=== PATIENT | female | born 1980 | race Caucasian/White ===

== ENCOUNTER 2018-07-24 14:54 | Inpatient (IN) | payer MEDICAID ==
[~2018-07-24] VITALS: Ht 160 cm; Wt 82.6 kg
[2018-07-24 17:44] VITALS: BP 118/77; PULSE 83; RESP 20; Ht 160 cm; Wt 82.6 kg
[2018-07-24] MEDS ORDERED: PREN-93 PO (17:53)
[2018-07-24] MEDS ORDERED: CARBOPROST 250 MCG INJ IM PRN ×2 (18:00→21:30)
[2018-07-24] MEDS ORDERED: LIDOCAINE 1% (MPF) 30 ML INJ INJ PRN (18:00)
[2018-07-24] MEDS ORDERED: BUTORPHANOL 2 MG INJ IV PRN (18:00)
[2018-07-24] MEDS ORDERED: OXYTOCIN 30 UNITS/LR 500 ML IV SCH ×2 (18:00)
[2018-07-24] MEDS ORDERED: OXYTOCIN 30 UNITS/LR 500 ML IV PRN ×2 (18:00→21:30)
[2018-07-24] MEDS ORDERED: IBUPROFEN 600 MG TAB PO PRN (18:00)
[2018-07-24] MEDS ORDERED: METHYLERGONOVINE 0.2 MG INJ IM PRN ×2 (18:00→21:30)
[2018-07-24] MEDS ORDERED: MISOPROSTOL 200 MCG TAB PR PRN ×2 (18:00→21:30)
[2018-07-24] MEDS: LACTATED RINGER'S 1,000 ML IV SCH (19:29)
--- NOTE | 2018-07-24 20:30 | HP ---
Date/Time of Note Date/Time of Note DATE: 07/24/18 TIME: 20:28 OB - History Hx of Present Chief Complaint: contractions Estimated Due Date: July 26, 2018 : 3 Para: 2 Spontaneous : 0 Therapeutic : 0 Care: Good Care Ultrasounds: Normal mid trimester US Obstetrical Complications: None Medical Complications: None Past Family/Social History * Past Medical, Surgical, Family and Obstetric Histories reviewed from chart. GBS Status: Negative OB Admission Exam Vital Signs Vital Signs Vital Signs Date Temp Pulse Resp B/P (MAP) Pulse Ox O2 O2 Flow FiO2 Time Delivery Rate 07/24/18 98.7 83 20 118/77 Room Air 17:44 (91) Physical Exam HEENT: WNL Heart: Rhythm Normal Lungs: Clear, Equal Abdomen: WNL Extremities: Normal Reflexes: Normal Cervical Dilatation: 4cm Effacement: 50% Station: -1 Membranes: Intact Heart Rate: 120's Accelerations: Accelerations Present Decelerations: No Decelerations Varibility: Moderate Last 72 hours Lab Results CBC & BMP 07/24/18 18:00 OB Assessment/Plan Reason for admission: active labor Plan: Expectant Management CARLOS RODRÍGUEZ MD July 24, 2018 20:30
--- NOTE | 2018-07-24 21:22 | LDN ---
Date/Time of Note Date/Time of Note DATE: 07/24/18 TIME: 21:18 Delivery Summary Patient was delivered by Dr Fields while I was on my way. over intact perineum. Shoulder dystocia noted and managed by Mc Henri maneuver and suprapubic pressure. Placenta Delivered: Spontaneously Meconium: Thick Episiotomy: No Laceration repair: Second degree perineal and vaginal laceration repaired. Anesthesia type: Local Estimated blood loss: 300 Sponge & Needle done & correct: Yes All needle counts correct: Yes Any foreign bodies felt in the: No Delivery Information Sex Infant Sex: male Apgars 1 Minute: 7 5 Minute: 9 Umbilical Cord Umbilical cord with: 3 Vessels Cord presentations: nuchal cord Nuchal cord present X: 1 Cord Blood was obtained: Yes Mother & Baby Disposition Disposition Mom & Baby to Maternity; Good: Yes CARLOS RODRÍGUEZ MD July 24, 2018 21:22
[2018-07-24] MEDS: LACTATED RINGER'S 1,000 ML IV* SCH (21:23)
[2018-07-24] MEDS ORDERED: DIBUCAINE 1% 30 GM OINT TOP PRN (21:30)
[2018-07-24] MEDS ORDERED: BENZOCAINE 20% 56 ML SPRAY TOP PRN (21:30)
[2018-07-24] MEDS ORDERED: WITCH HAZEL/GLYCERIN PAD PR PRN (21:30)
[2018-07-24] MEDS ORDERED: ACETAMINOPHEN 325 MG TAB PO PRN (21:30)
[2018-07-24] MEDS ORDERED: HYDROCODONE/APAP (5/325) TAB PO PRN (21:30)
[2018-07-24 22:30] VITALS: BP 100/54; PULSE 88; RESP 16
[2018-07-25] MEDS: IBUPROFEN 600 MG TAB PO SCH ×5 (00:27→23:34)
[2018-07-25] MEDS: LACTATED RINGER'S 1,000 ML IV SCH ×3 (00:29→17:40)
[2018-07-25 04:00] VITALS: BP 101/60; PULSE 78; RESP 20
[2018-07-25] MEDS: LACTATED RINGER'S 1,000 ML IV* SCH ×2 (05:23→13:23)
[2018-07-25 08:00] VITALS: BP 103/58; PULSE 56; RESP 18
[2018-07-25] MEDS: SENNA/DOCUSATE NA (8.6MG/50MG) TAB PO SCH ×2 (08:17→22:02)
--- NOTE | 2018-07-25 14:33 | QN ---
Documentation Comment No complaint Afebrile VSS Fundus firm Stable Continue present care. CARLOS RODRÍGUEZ MD July 25, 2018 14:33
[2018-07-25 16:08] VITALS: BP 106/64; PULSE 80; RESP 18
[2018-07-25 19:45] VITALS: BP 113/72; PULSE 94; RESP 18
[2018-07-26 03:47] VITALS: BP 101/58; PULSE 77; RESP 17
[2018-07-26] MEDS: IBUPROFEN 600 MG TAB PO SCH ×2 (05:54→12:15)
[2018-07-26 08:10] VITALS: BP 101/69; PULSE 75; RESP 20
[2018-07-26] MEDS ORDERED: DIPHTH/TET/ACEL PERTUSS (ADULT) 0.5 ML VIAL IM* ONE (09:00)
[2018-07-26] MEDS: SENNA/DOCUSATE NA (8.6MG/50MG) TAB PO SCH (09:39)
--- NOTE | 2018-07-26 15:07 | DS ---
Date/Time of Note Date/Time of Note DATE: 07/26/18 TIME: 15:06 Obstetrical Discharge Record Final Diagnosis Final Diagnosis: Term delivered Vaginal Delivery Obstetrical Delivery: Spontaneous Condition on Discharge Physical Assessment Voiding: Yes Bowel Movement: Yes Breast: Soft, non-tender, Filling Fundus: Firm Calf Tenderness: No Patient Condition: Stable CARLOS RODRÍGUEZ MD July 26, 2018 15:07
--- NOTE | 2018-07-27 16:13 | DELSUM ---
Delivery Summary A-C Datetime Report Generated by CPN: 07/27/2018 16:12 DELIVERY PERSONNEL Supervisor Pipeline: Tello, Zo MATERNAL INFORMATION Delivery Anesthesia: Local Medications in Delivery: 30 UNITS PITOCIN Delivery QBL (ml): 300 Placenta Cultured: Yes Maternal Complications: None LABOR SUMMARY EDC: 07/26/2018 00:00 No. Babies in Womb: 1 Attempted: No Labor Anesthesia: None LABOR INFORMATION Reason for Induction: Not Applicable Onset of Labor: 07/24/2018 14:30 Complete Dilatation: 07/24/2018 19:44 Oxytocin: N/A Group B Beta Strep: Negative Antibiotics # of Doses: 0 Steroids Given: None Reason Steroids Not Administered: Not Applicable MEMBRANES Membranes Rupture Method: Artificial Rupture of Membranes: 07/24/2018 18:39 Length of Rupture (hr): 1.27 Amniotic Fluid Color: Heavy Meconium Amniotic Fluid Amount: Moderate Amniotic Fluid Odor: None STAGES OF LABOR Stage 1 hr: 5 Stage 1 min: 14 Stage 2 hr: 0 Stage 2 min: 11 Stage 3 hr: 0 Stage 3 min: 3 Total Time in Labor hr: 5 Total Time in Labor min: 28 VAGINAL DELIVERY Laceration Extension: Second Degree Laceration Type: Perineal; Vaginal Laceration Repair: Yes Initial Vag Sponge Count: 10 Final Vag Sponge Count: 10 Initial Vag Sharps Count: 3 Final Vag Sharps Count: 3 Sponge Count Correct: Yes; Vaginal Sweep Performed Sharps Count Correct: Yes BABY A INFORMATION Infant Delivery Date/Time: 07/24/2018 19:55 Method of Delivery: Vaginal Born in Route : No : N/A Forceps: N/A Vacuum Extraction: N/A Shoulder Dystocia : Yes SHOULDER DYSTOCIA BABY A Delivery of Head: 07/24/2018 19:54 Delivery Date/Time: 07/24/2018 19:55 Time Head to Delivery : 1.0 1st Intervention to Resolve: Suprapubic Pressure Verify NO Fundal Pressure: No Fundal Pressure Applie Arm Under Symphisis at Del: Right PRESENTATION/POSITION BABY A Presentation: Cephalic Cephalic Presentation: Vertex Breech Presentation: N/A PLACENTA INFORMATION BABY A Placenta Delivery Time : 07/24/2018 19:58 Placenta Method of Delivery: Expressed Placenta Status: Delivered SCORES BABY A Heart Rate 1 min: >100 bpm Resp Effort 1 min: Good Cry Reflex Irritability 1 min: Cough/Sneeze/Pulls Away Muscle Tone 1 min: Some Flexion of Extrem Color 1 min: Blue/Pale SCORE 1 MIN: 7 Heart Rate 5 min: >100 bpm Resp Effort 5 min: Good Cry Reflex Irritability 5 min: Cough/Sneeze/Pulls Away Muscle Tone 5 min: Active Motion Color 5 min: Body Emin[place], Extremit Blue Resuscitation Effort 5 min: Tactile Stimulation SCORE 5 MIN: 9 INFANT INFORMATION BABY A Gestational Age at Delivery: 39.5 Gestational Status: Full Term- 39- 40.6 Weeks Infant Outcome : Liveborn Infant Condition : Stable Infant Sex: Male IDENTIFICATION/MEDS BABY A ID Band Number: [id number] ID Band Location: Right Leg; Left Arm Sensor Number: [id number] Sensor Location : Cord Clamp Vitamin K Given : Not Given Erythromycin Given: Not Given WEIGHT/LENGTH BABY A Infant Birthweight (gm): 3525 Weight (lb): 7 Infant Weight (oz): 12 Infant Length (in): 19.50 Infant Length (cm): 49.53 CORD INFORMATION BABY A No. Cord Vessels: 3 Nuchal Cord : Around Neck x1, Loose Cord pH Baby Arterial: 7.30 Infant Cord pH Baby Venous: 7.40 Cord Blood Taken: Yes Infant Suction: Mouth; Nose ASSESSMENT BABY A Complications: Meconium; Shoulder Dystocia Physical Findings at Delivery: Bruising Respirations: Appears Normal Jute Bag Clipper/ALS Called : No Care By: SURESH Transferred To: Remains with Mother
== END 2018-07-26 16:00 | disposition home or self-care (01) | DRG 807 ==
LOC: OBT 14:54 → L-D 14:55 → OBT 17:25 → L-D 17:38 → PP1 22:30
PROVIDERS: ADMIT Obstetrics & Gynecology; ATTEND Obstetrics & Gynecology
PROC: 10E0XZZ Delivery of Products of Conception, External Approach (ICD-10-PCS; principal; 2018-07-24)
PROC: 0KQM0ZZ Repair Perineum Muscle, Open Approach (ICD-10-PCS; 2018-07-24)
DX: O66.0 Obstructed labor due to shoulder dystocia (principal); Z37.0 Single live birth; O77.0 Labor and delivery complicated by meconium in amniotic fluid; O70.1 Second degree perineal laceration during delivery; O69.1XX0 Labor and delivery complicated by cord around neck, with compression, not applicable or unspecified; Z3A.39 39 weeks gestation of pregnancy; Z23 Encounter for immunization
CPT/HCPCS: 36415; 36600; 82803; 85025; 85610; 85730; 86592; 86850; 86900; 86901; 87340; 88307; 90715; 99464; G0463; J2210; J2590; J7120

== ENCOUNTER 2018-09-30 16:11 | Emergency (ER) | payer MEDICAID ==
[~2018-09-30] VITALS: Ht 162.6 cm; Wt 70.0 kg
[~2018-09-30 16:11] MED LIST: CEPH-443 PO; CIPR500T4 PO; PREN-93 PO
[2018-09-30 16:14] VITALS: BP 134/73; PULSE 104; RESP 22; Ht 162.6 cm; Wt 70.0 kg
[2018-09-30] MEDS ORDERED: CEFTRIAXONE 1 GM INJ IM ONE (18:00)
[2018-09-30] MEDS ORDERED: LIDOCAINE 1% (MDV) 20 ML INJ SC ONE (18:00)
--- NOTE | 2018-10-01 12:48 | ERD ---
ER Documentation Chief Complaint Chief Complaint back pain, unable to urinate, painful urination HPI This is a 37-year-old female presenting to the emergency department complaining of burning on urination and urinary urgency for 3 days which is intermittent. She is also had right-sided low back pain and chills. She has had some nausea. She denies any vaginal discharge, fevers, chills, dizziness, abdominal pain, or other symptoms ROS All systems reviewed and are negative except as per history of present illness. Medications Home Meds Active Scripts Cephalexin* (Keflex*) 500 Mg Capsule, 500 MG PO QID for 7 Days, CAP Prov:MAKENNA HERNANDEZ PA-C 09/30/18 Ciprofloxacin Hcl* (Ciprofloxacin Hcl*) 500 Mg Tablet, 500 MG PO BID for 7 Days, TAB Prov:MAKENNA HERNANDEZ PA-C 09/30/18 Reported Medications Vit No.124/Iron/FA ( Vitamin Tablet) 1 Each Tablet, 1 EACH PO, TAB 07/24/18 Allergies Allergies: Coded Allergies: No Known Allergy (Unverified , 07/24/18) PMhx/Soc Medical and Surgical Hx: pt denies Medical Hx, pt denies Surgical Hx Hx Alcohol Use: No Hx Substance Use: No Hx Tobacco Use: No Smoking Status: Never smoker Physical Exam Vitals Vital Signs Date Temp Pulse Resp B/P (MAP) Pulse Ox O2 O2 Flow FiO2 Time Delivery Rate 09/30/18 99.5 104 22 134/73 100 16:14 (93) Physical Exam Const: No acute distress Head: Atraumatic Eyes: Normal Conjunctiva ENT: Normal External Ears, Nose and Mouth. Neck: Full range of motion. No meningismus. Resp: Clear to auscultation bilaterally Cardio: Regular rate and rhythm, no murmurs Abd: Soft, non tender, non distended. Normal bowel sounds Skin: No petechiae or rashes Back: No midline or flank tenderness Ext: No cyanosis, or edema Neur: Awake and alert Psych: Normal Mood and Affect Results 24 hrs Laboratory Tests Test 09/30/18 17:24 09/30/18 17:25 Bedside Urine pH (LAB) 5.5 Bedside Urine Protein (LAB) 2+ Bedside Urine Glucose (UA) Negative Bedside Urine Ketones (LAB) Negative Bedside Urine Blood 2+ Bedside Urine Nitrite (LAB) Negative Bedside Urine Leukocyte Esterase (L 1+ POC Beta HCG, Qualitative NEGATIVE Current Medications Medications Dose Sig/Angel Start Time Status Last (Trade) Ordered Route PRN Stop Time Admin Dose Reason Admin Ceftriaxone 1 gm ONCE ONCE 09/30/18 DC 09/30/18 Sodium IM 18:00 09/30/18 17:48 (Rocephin) 18:01 Lidocaine 20 ml ONCE ONCE 09/30/18 DC 09/30/18 (Xylocaine SC 18:00 09/30/18 17:48 1% (Mdv) 20 18:01 ml) Procedures/MDM 37-year-old female presenting to the emergency department with signs symptoms and work-up most consistent with urinary tract infection. Patient had 2+ protein, 2+ hematuria, 1+ leukocyte esterase. She was nontoxic and well- appearing with stable vital signs. She was administered Rocephin 1 g in the department and was otherwise stable for discharge and further outpatient management. Will be treated with a prescription for Keflex she is breast- feeding. No evidence of life-threatening pathology at time of discharge. Pt/family in agreement with discharge plan/diagnosis. Pt/family advised to return immediately with any new or worsening symptoms. Follow-up with primary care physician within the next 1-2 days. Departure Diagnosis: Primary Impression: UTI (urinary tract infection) Additional Impression: Vaginal discharge Condition: Fair Patient Instructions: What Are Sexually Transmitted Diseases (STDs)?, Understanding Urinary Tract Infections (UTIs) Referrals: [facility] YOU HAVE RECEIVED A MEDICAL SCREENING EXAM AND THE RESULTS INDICATE THAT YOU DO NOT HAVE A CONDITION THAT REQUIRES URGENT TREATMENT IN THE EMERGENCY DEPARTMENT. FURTHER EVALUATION AND TREATMENT OF YOUR CONDITION CAN WAIT UNTIL YOU ARE SEEN IN YOUR DOCTORS OFFICE WITHIN THE NEXT 1-2 DAYS. IT IS YOUR RESPONSIBILITY TO MAKE AN APPOINTMENT FOR FOLOW-UP CARE. IF YOU HAVE A PRIMARY DOCTOR --you should call your primary doctor and schedule an appointment IF YOU DO NOT HAVE A PRIMARY DOCTOR YOU CAN CALL OUR PHYSICIAN REFERRAL HOTLINE AT IF YOU CAN NOT AFFORD TO SEE A PHYSICIAN YOU CAN CHOSE FROM THE FOLLOWING [facility] [id number] [place]. [facility] [address] [facility] [facility] [address] [facility] [address] [facility]. [facility] [address] [facility]. [facility]. [address] Additional Instructions: Call your primary care doctor TOMORROW for an appointment during the next 1-2 days.See the doctor sooner or return here if your condition worsens before your appointment time. MAKENNA HERNANDEZ PA-C Oct 01, 2018 12:48
== END 2018-09-30 18:14 | disposition home or self-care (01) ==
LOC: FTE 16:11
DX: N39.0 Urinary tract infection, site not specified (principal); N89.8 Other specified noninflammatory disorders of vagina
CPT/HCPCS: 81003; 81025; 96372; J0696; Z7502; Z7610